=== PATIENT | male | born 1950 | race Caucasian/White ===

== ENCOUNTER 2025-02-06 08:57 | Inpatient (IN) ==
--- NOTE | 2025-01-17 11:09 | Anesthesiology Consultation ---
Date of Service January 17, 2025 Assessment & Plan (1) Encounter for pre-operative examination: - Infectious disease screening: Per assessment on 01/17/25- No known recent infectious disease contacts or current infectious disease symptoms. - Acceptable risk for surgery pending surgeon-ordered PCP preop evaluation (CAROLYN, appt 01/30). Chart Review Chart Review: Patient seen in Pre Admission Testing Teaching & Discussion Pre-Anesthesia Teaching/Discussion Notes: Instructed NPO after midnight before surgery,except medications with 15 cc of water. Medication instructions provided according to the PAT guidelines. History Surgery Operation Date: 02/06/25 10:05 Proposed Procedures p L3-L5 Decompression and Fusion - Pritesh Staley DO Height/Weight Height: 6 ft Weight: 115.3 kg Allergies Allergy/AdvReac Type Severity Reaction Status Date / Time No Known Drug Allergies Allergy Unknown Verified 01/17/25 11:14 Medications Home Medications Medication Instructions Recorded Confirmed Last Taken atorvastatin 20 mg tablet 20 mg PO QAM 01/17/25 01/17/25 Unknown cholecalciferol (vitamin D3) 50 50 mcg PO QAM 01/17/25 01/17/25 Unknown mcg (2,000 unit) capsule (Vitamin D3) lisinopril 30 mg tablet 30 mg PO QAM 01/17/25 01/17/25 Unknown loratadine 10 mg tablet 10 mg PO QAM 01/17/25 01/17/25 Unknown meloxicam 7.5 mg tablet 7.5 mg PO BID 01/17/25 01/17/25 Unknown omeprazole 20 mg tablet,delayed 20 mg PO QAM 01/17/25 01/17/25 Unknown release tizanidine 2 mg tablet 2 mg PO BID PRN Muscle Spasm 01/17/25 01/17/25 Unknown Past Medical History Medical History Hearing loss L cochlear implant History of migraine headaches HTN (hypertension) Hyperlipidemia Lower back pain no radicular sx Obesity Exercise / Class Metabolic Activity III < 4 Walking/Shop/Light housework Past Family History Family History Other No family history of adverse response to anesthesia Past Surgical History Surgical History History of cataract surgery B/L History of cochlear implant L 2009 History of eye surgery B/L retinal detachment History of left knee replacement Past Anesthesia History No Hx of Anesthesia Complications and No Family Hx of Anesthesia Complications History of PONV No Hx of PONV and No Hx of Motion Sickness Social History Smoking Status: Never smoker Do You Dip or Chew Tobacco: Yes (NPO guidelines provided) Hx Alcohol Use: Yes alcohol intake frequency: a few times a week Hx Substance Use: No Review of Systems Patient denies chest pain, shortness of breath, dyspnea on exertion, fever, chills, cough, wheezing. Physical Exam Vital Signs BP 135/85 P 57 TEMP 97.8 SP02 95%RA RESP 16 Physical Full cervical extension range of motion. Full TMJ range of motion. TMD 3 finger breaths Mallampati Score III Dentition: poor dentition, few remaining teeth, "all rotted" Lungs: clear throughout to auscultation Cardiac: regular rate and rhythm, no murmurs noted Spine: normal Carotid arteries: negative bruit Extremities: no LE edema Lab Results Anesthesia Preop Results Results Anesthesia Widget: WBC 6.88 K/ul (4.8-10.8) 01/17/25 Hgb 14.8 g/dl (14.0-18.0) 01/17/25 Hct 43.7 % (42.0-52.0) 01/17/25 Plt 172 K/uL (130-400) 01/17/25 Na 139 mmol/L (136-145) 01/17/25 K 4.0 mmol/L (3.5-5.1) 01/17/25 Cl 108 mmol/L (98-107) H 01/17/25 CO2 22 mmol/L (21-32) 01/17/25 BUN 20 mg/dl (6-23) 01/17/25 Creat 1.04 mg/dl (0.6-1.4) 01/17/25 Glucose Level 98 mg/dl (70-99(Fasting)) 01/17/25 PT 11.2 Seconds (9.0-12.0) 01/17/25 PTT 27 Seconds (21-31) 01/17/25 INR 1.1 (0.9-1.1) 01/17/25 Urine Color Yellow 01/17/25 Urine Appearance Clear (Clear) 01/17/25 Urine pH 6.5 (4.5-7.5) 01/17/25 Urine Specific [place] 1.022 (1.000-1.030) 01/17/25 Urine Protein Negative (Negative) 01/17/25 Urine Glucose (UA) Negative (Negative) 01/17/25 Urine Ketones Trace (Negative) H 01/17/25 Urine Blood Negative (Negative) 01/17/25 Urine Nitrite Negative (Negative) 01/17/25 Urine Bilirubin Negative (Negative) 01/17/25 Urine Urobilinogen Negative (Negative) 01/17/25 Urine Leukocyte Esterase Negative (Negative) 01/17/25 Blood Type A Positive 01/17/25 Antibody Screen NEGATIVE 01/17/25 Testing Electrocardiogram Date: 01/17/25 SB at 57bpm. LAFB. Chest X-Ray Date: 01/17/25 FINDINGS: There is a moderate hiatal hernia. Heart size and pulmonary vasculature are normal. Lungs are hyperexpanded. No consolidation or pleural effusion seen. There is prior kyphoplasty at the lower thoracic spine and there is mild chronic height loss at a few thoracic vertebral bodies otherwise. IMPRESSION: No acute findings.
--- NOTE | 2025-01-17 11:46 | PAT Medication Instructions ---
Medication Instructions Date of Service January 17, 2025 Home Medications atorvastatin 20 mg tablet 20 mg PO QAM cholecalciferol (vitamin D3) 50 mcg (2,000 unit) capsule (Vitamin D3) 50 mcg PO QAM lisinopril 30 mg tablet 30 mg PO QAM loratadine 10 mg tablet 10 mg PO QAM meloxicam 7.5 mg tablet 7.5 mg PO BID omeprazole 20 mg tablet,delayed release 20 mg PO QAM tizanidine 2 mg tablet 2 mg PO BID PRN Muscle Spasm ASK your surgeon for instructions meloxicam 7.5 mg tablet 7.5 mg PO BID DO NOT take the morning of surgery cholecalciferol (vitamin D3) 50 mcg (2,000 unit) capsule (Vitamin D3) 50 mcg PO QAM lisinopril 30 mg tablet 30 mg PO QAM loratadine 10 mg tablet 10 mg PO QAM Take morning of surgery With a small sip of water, OTHERWISE NOTHING TO EAT OR DRINK AFTER MIDNIGHT: atorvastatin 20 mg tablet 20 mg PO QAM omeprazole 20 mg tablet,delayed release 20 mg PO QAM tizanidine 2 mg tablet 2 mg PO BID PRN Muscle Spasm (if needed) Other Notes If you have any questions please call us at [phone] or [phone] or [phone] or [phone]
[2025-02-06] MEDS ORDERED: PROMETHAZINE HCL 6.25 MG in SODIUM CHLORIDE 0.9% 50 ML IV PRN (09:08)
[2025-02-06] MEDS ORDERED: ATROPINE SULFATE 0.1 MG/ML 10ML SYR IV PRN (09:08)
[2025-02-06] MEDS ORDERED: ONDANSETRON INJ 2 MG/ML 2 ML VIAL ONE (09:14)
[2025-02-06] MEDS ORDERED: LIDOCAINE 2% 20 MG/ML 5 ML SYR IV ONE (09:14)
[2025-02-06] MEDS ORDERED: DEXAMETHASONE SOD INJ 4 MG/ML VIAL ONE (09:14)
[2025-02-06] MEDS ORDERED: ROCURONIUM BROMIDE 10 MG/ML 5 ML VIAL IV ONE ×3 (09:14→11:30)
[2025-02-06] MEDS ORDERED: SUGAMMADEX SODIUM 200 MG/2 ML VIAL IV ONE ×2 (09:31→10:59)
[2025-02-06] MEDS: LR 15ML/HR IV SCH (09:41)
--- NOTE | 2025-02-06 09:41 | History & Physical Bridge Note ---
Date of Service February 06, 2025 History & Physical Bridge Note I have examined the patient, reviewed the History & Physical and in the interval since the performance of the History & Physical I have noted the following changes of clinical significance: no changes noted
--- NOTE | 2025-02-06 09:42 | History & Physical Report ---
Date of Service February 06, 2025 Assessment & Plan (1) Multilevel lumbosacral spondylosis with radiculopathy: Plan: L3-L5 decompression and fusion History of Present Illness Chief Complaint: Back and leg pain Primary Care Provider: NO PCP This is a 75-year-old male presents for chronic persistent back and leg pain after failing course of nonoperative care is here for surgical intervention. Allergies Allergy/AdvReac Type Severity Reaction Status Date / Time No Known Drug Allergies Allergy Unknown Verified 02/06/25 09:04 Home Medications Medication Instructions Recorded Confirmed Type atorvastatin 20 mg tablet 20 mg PO QAM 01/17/25 02/06/25 History cholecalciferol (vitamin D3) 50 50 mcg PO QAM 01/17/25 02/06/25 History mcg (2,000 unit) capsule (Vitamin D3) lisinopril 30 mg tablet 30 mg PO QAM 01/17/25 02/06/25 History loratadine 10 mg tablet 10 mg PO QAM PRN allergies 01/17/25 02/06/25 History meloxicam 7.5 mg tablet 7.5 mg PO BID 01/17/25 02/06/25 History omeprazole 20 mg tablet,delayed 20 mg PO QAM 01/17/25 02/06/25 History release tizanidine 2 mg tablet 2 mg PO BID PRN Muscle Spasm 01/17/25 02/06/25 History acetaminophen 500 mg tablet 1,000 mg PO Q6H PRN Pain 02/06/25 02/06/25 History Past Med/Surg History Problem List (Updated 02/06/25 @ 09:42 by Pritesh Staley DO) Multilevel lumbosacral spondylosis with radiculopathy Encounter for pre-operative examination Medical History Hearing loss L cochlear implant History of migraine headaches HTN (hypertension) Hyperlipidemia Lower back pain no radicular sx Obesity Surgical History History of cataract surgery B/L History of cochlear implant L 2009 History of eye surgery B/L retinal detachment History of left knee replacement Family History Other No family history of adverse response to anesthesia Social History Smoking Status: Never smoker Tobacco Type: Smokeless Tobacco (Dip or Chew) Second Hand Exposure: No; Do You Dip or Chew Tobacco: Yes (NPO guidelines provided); Tobacco Cessation Education Requested by Patient: No Hx Alcohol Use: Yes Hx Substance Use: No Preferred Language: Maori Communication Ability: Effective Fruit Dryer Required: No Beliefs That Will Affect Care: None Current Living Situation: Family Other Information That Helps Us Care for You: No Feels Safe at Home: Yes Safety Concerns: Feels Safe At This Time Assistive Devices: Glasses Assistive Devices Comment: L cochlear implant Physical Exam Physical Exam: Patient is alert and oriented heart regular rhythm Lungs clear Results & Data Results & Data Vital Signs (Past 12 Hours) Vital Signs Temp Pulse Resp BP Pulse Ox O2 Del Method 02/06/25 09:10 Room Air 02/06/25 09:09 36.6 C 61 18 141/82 H 95 Room Air
[2025-02-06] MEDS: LR 60ML/HR IV SCH (09:43)
[2025-02-06] MEDS: ACETAMINOPHEN 500 MG TAB PO SCH (09:45)
[2025-02-06] MEDS: GABAPENTIN 300 MG CAP PO SCH (09:45)
[2025-02-06] MEDS: CeleBREX 200 MG CAP PO SCH (09:45)
[2025-02-06] MEDS: BUPIVACAINE/EPINEPHRINE 0.25% 1:200,000 30 ML VIAL ONE (11:01)
[2025-02-06] MEDS ORDERED: PROPOFOL IV EMULSION 10 MG/ML 20 ML VIAL IV ONE ×2 (11:04→12:24)
[2025-02-06] MEDS: SURGICEL ABSORB HEMOSTAT 2IN X 14IN TOP ONE (11:29)
[2025-02-06] MEDS ORDERED: HYDROmorphone INJ 2 MG/ML SYR/VIAL ONE (11:38)
[2025-02-06] MEDS: ceFAZolin 330 MG/ML 1 GM VIAL ONE (12:33)
[2025-02-06] MEDS: FLOSEAL HEMOSTATIC MATRIX 10ML TOP ONE (12:44)
--- NOTE | 2025-02-06 12:48 | Operative Report ---
Post Operative Report Pre & Post Diagnosis Operation Date: 02/06/25 10:05 Pre-Op Diagnosis: #1 lumbar spondylosis with radiculopathy #2 lumbar spondylolisthesis #3 lumbar spinal stenosis Post-Op Diagnosis: Same I identified the patient and participated in the time-out.: Yes Procedure Operation Date: 02/06/25 10:05 Actual Procedures #1 lumbar decompression with bilateral medial facetectomies and foraminotomies L2-L3, L3-L4 and L4-L5 #2 posterior spinal fusion L3-L5. #3 placed posterior instrumentation L3-L5 using Lobato. #4 interbody fusion L3-L4 L4-L5. #5 placement Spira 12 x 26 mm at L3-L4 and 10 x 26 mm at L4-L5. 6 placement locally harvested morselized autograft in the posterior gutters. #7 placement of Koros bone graft combined with Proteus in the posterior lateral gutters and os design and interbody space. #8 application of versa wrap of the exposed dura. Surgeon Pritesh Staley, DO Solar Installation Helper Jill Rojas Estimated Blood Loss 650 Findings See Below The patient is 6 foot tall weighing 112 kg with a BMI in excess of 33. This combined with an EBL of greater than 650 cc created significant technical difficulty with positioning exposure and the procedure itself. This added at least 40% increased operative time. And recommending modifier 22. Specimens None Indications This is a 75-year-old male who presents publish diagnosis after failing course of nonoperative care is here for surgical invention. Description of Procedure Patient was met with identified informed consent obtained. Patient was then taken to the operative suite underwent ablation placed in a prone position on the Lanre table on top of the Collin frame. All bony prominences well-padded eyes inspected to ensure no external pressure placed upon them. This point the lumbar spine was prepped and draped in normal sterile fashion. Sharp dissection with the assistance of Bovie guidance from down to and exposing the lamina transverse processes of L3-L4-L5 bilaterally. From caudal cephalad fashion complete laminectomy of L4 and L3 including bilateral medial facetectomies and foraminotomies addressing severe epidural adhesions foraminal stenosis. Then I performed a partial laminectomy of L2 with bilateral medial facetectomies to address all subarticular stenosis. Pedicle screws were then placed in L3-L4-L5 bilaterally with assistance of fluoroscopy and the properly sized shruthi contoured and placed. By way of transfer and approach on the right discectomy of L4-L5 was performed endplates corrected to subcortical bleeding bone and a 10 x 26 mm Spira cage tapped into position. Then proceeded to the left transforaminal region at L4 for L5. Again discectomy performed. Endplates cut to subcortical bleeding bone and a second 10 x 26 mm Spira cage tapped into position. Then proceeded to L3-L4 and by way of transfer and approach on the left discectomy was performed endplates guided to subcortical bleeding bone and a 12 x 26 mm Spira cage tapped in position. Lastly approached the right transforaminal region at L3-L4. Again discectomy performed. Endplates corrected to subcortical bleeding bone and a second 12 x 26 mm Spira cage tapped into position. Please note all cages were packed with os design bone graft. The rods were then compressed locked in final position bilaterally. The transverse processes of L3 L4-5 burred to subcortical bleeding bone. Proteus combined with Koros bone graft and local autograft placed in the posterolateral gutters. Versa wrap placed over the exposed dura. 15 round TARYN drain inserted. The incision was then closed with 1 Vicryl the fascia 2-0 Vicryl subcutaneously and 4-0 Monocryl for final skin closure. Steri-Strips sterile dressing placed. Patient waken taken to PACU in stable condition. Please note Jill Rojas was present of the entire procedure and on the patient positioning complex portion of the surgery and final skin closure. I attest to the content of the Intraoperative Record and any orders documented therein. Any exceptions are noted below.
[2025-02-06] MEDS: HYDROmorphone INJ 2 MG/ML SYR/VIAL IV PRN (13:34)
--- NOTE | 2025-02-06 13:39 | Fluoroscopy Report ---
FL lumbar spine 2-3V CLINICAL HISTORY: L3-L5 DECOMP AND FUSION COMPARISON STUDY: None FLUOROSCOPY TIME: 15 seconds FLUOROSCOPY IMAGES: 2 EXPOSURE DOSE: 7.2 mGy FINDINGS: Fluoroscopy was provided for lower lumbar fusion. IMPRESSION: Intraoperative fluoroscopy ACT 112: Negative or not required by law. Electronically signed by: Vaibhav Courtney M.D. 02/06/2025 1:38 PM
--- NOTE | 2025-02-06 14:56 | Anesthesiology Progress Note ---
Date of Service February 06, 2025 Anesthesia Post Procedure Vital Signs Vital Signs: Temp Pulse Pulse Resp BP Pulse Ox O2 Del Method 02/06/25 14:40 70 12 90/67 L 94 Nasal Cannula 02/06/25 14:25 71 14 91/70 L 94 Nasal Cannula 02/06/25 14:10 36.4 C L 70 12 103/67 95 Nasal Cannula 02/06/25 14:00 71 12 110/71 95 Nasal Cannula 02/06/25 13:50 68 12 106/75 95 Oxymask 02/06/25 13:40 69 12 110/71 97 Oxymask 02/06/25 13:30 70 12 105/68 96 Oxymask 02/06/25 13:20 71 12 110/74 95 Oxymask 02/06/25 13:10 73 12 107/76 97 Oxymask 02/06/25 13:00 36.2 C L 78 16 122/71 97 Oxymask 02/06/25 09:10 Room Air 02/06/25 09:09 36.6 C 61 18 141/82 H 95 Room Air O2 Flow Rate 02/06/25 14:40 2 02/06/25 14:25 2 02/06/25 14:10 2 02/06/25 14:00 2 02/06/25 13:50 4 02/06/25 13:40 4 02/06/25 13:30 4 02/06/25 13:20 4 02/06/25 13:10 6 02/06/25 13:00 6 02/06/25 09:10 02/06/25 09:09 Pain Intensity Back: Pain Intensity: 5 Transfer of Care Handoff Completed per policy Notes Mental Status: alert / awake / arousable and participated in evaluation Nausea / Vomiting: adequately controlled Pain: adequately controlled Airway Patency, RR, SpO2: stable & adequate BP & HR: stable & adequate Hydration State: stable & adequate Anesthetic Complications: no major complications apparent and Pt Satisfied with anesthetic care
[2025-02-06] MEDS ORDERED: DO NOT ADMINISTER PNEUMOCOCCAL VACCINE PRN (16:23)
[2025-02-06] MEDS ORDERED: HYDROmorphone INJ 1 MG/ML SYRINGE IV PRN (16:23)
[2025-02-06] MEDS ORDERED: METOCLOPRAMIDE HCL INJ 5 MG/ML 2 ML VIAL IV PRN (16:23)
[2025-02-06] MEDS ORDERED: ONDANSETRON 4 MG OD TAB PO PRN (16:23)
[2025-02-06] MEDS ORDERED: LORATADINE 10 MG TAB PO PRN (16:23)
[2025-02-06] MEDS ORDERED: ONDANSETRON INJ 2 MG/ML 2 ML VIAL IV PRN (16:23)
[2025-02-06] MEDS ORDERED: LORazepam 0.5 MG TAB PO PRN (16:23)
[2025-02-06] MEDS ORDERED: MAGNESIUM HYDROXIDE SUSP 30 ML UDC PO PRN (16:23)
[2025-02-06] MEDS ORDERED: ALUMINUM/MAGNESIUM SUSP 30 ML UDC PO PRN (16:23)
[2025-02-06] MEDS ORDERED: NALOXONE HCL 0.4 MG/1 ML VIAL/CARP IV PRN (16:23)
[2025-02-06] MEDS ORDERED: DO NOT ADMINISTER FLU VACCINE PRN (16:23)
[2025-02-06] MEDS ORDERED: ACETAMINOPHEN 1,000 MG/100 ML VIAL IV PRN (16:23)
[2025-02-06] MEDS ORDERED: SOD PHOSPHATE/SOD BIPHOSPHATE ENEMA 132 ML BTL PR PRN (16:23)
[2025-02-06] MEDS ORDERED: FAMOTIDINE 20 MG TAB PO PRN (16:23)
[2025-02-06] MEDS ORDERED: diphenhydrAMINE Capsule 25 MG CAP PO PRN (16:23)
[2025-02-06] MEDS ORDERED: HYDROmorphone INJ 0.5 MG/0.5 ML SYR IV PRN (16:23)
[2025-02-06] MEDS ORDERED: LORazepam Inj 0.5 MG in SYRINGE 0.25 ML IV PRN (16:23)
[2025-02-06] MEDS ORDERED: PROMETHAZINE 12.5 MG/50.5 ML BAG IV PRN (16:23)
[2025-02-06] MEDS: SODIUM CHLORIDE 0.9% 1,000 ML IV SCH (18:47)
--- NOTE | 2025-02-06 19:10 | Consultation ---
Date of Consultation February 06, 2025 Assessment & Plan (1) Multilevel lumbosacral spondylosis with radiculopathy: S/p lumbar surgery w/ Dr. Staley pain management, DVT ppx, PT/OT as per orthopedics Monitor H&H for acute blood loss anemia. Pre-op Hgb 14.8 HTN - on lisinopril, hold for now, BP 117/71 - monitor BP HLD - cont. atorvastatin GERD - at home on omeprazole, cont. pantoprazole for now Prediabetes - Hgb A1c 5.7 in 05/2024, per outpt records recent glucose levels normal - cont. to monitor History of Present Illness Requesting Physician: Dr. Staley Reason for Consultation: post op med management Attending Physician: Pritesh Staley, History of Present Illness Pt is a 75 yo M with hx of prediabetes, HTN, left anterior fasc. block, GERD w/o esophagitis, lumbosacral radiculopathy who is s/p lumbar spine surgery w/ Dr. Staley. Currently sitting up in bed in [facility]. Pt's present at the bedside. Pt denies any chest pain, shortness of breath, fevers, chills, abd. pain, n/v. Says he just ate. He is moving extremities. Says his back is sore from surgery but overall feels comfortable. Pt is hard of hearing. Allergies Allergy/AdvReac Type Severity Reaction Status Date / Time No Known Drug Allergies Allergy Unknown Verified 02/06/25 09:04 Home Medications Medication Instructions Recorded Confirmed Type atorvastatin 20 mg tablet 20 mg PO QAM 01/17/25 02/06/25 History cholecalciferol (vitamin D3) 50 50 mcg PO QAM 01/17/25 02/06/25 History mcg (2,000 unit) capsule (Vitamin D3) lisinopril 30 mg tablet 30 mg PO QAM 01/17/25 02/06/25 History loratadine 10 mg tablet 10 mg PO QAM PRN allergies 01/17/25 02/06/25 History meloxicam 7.5 mg tablet 7.5 mg PO BID 01/17/25 02/06/25 History omeprazole 20 mg tablet,delayed 20 mg PO QAM 01/17/25 02/06/25 History release tizanidine 2 mg tablet 2 mg PO BID PRN Muscle Spasm 01/17/25 02/06/25 History acetaminophen 500 mg tablet 1,000 mg PO Q6H PRN Pain 02/06/25 02/06/25 History Patient History Medical History History of migraine headaches Hearing loss L cochlear implant Obesity Lower back pain no radicular sx Hyperlipidemia HTN (hypertension) Surgical History History of eye surgery B/L retinal detachment History of cataract surgery B/L History of left knee replacement History of cochlear implant L 2009 Family History Other No family history of adverse response to anesthesia Social History Smoking Status: Never smoker Tobacco Type: Smokeless Tobacco (Dip or Chew) Second Hand Exposure: No; Do You Dip or Chew Tobacco: Yes (NPO guidelines provided); Tobacco Cessation Education Requested by Patient: No Hx Alcohol Use: Yes Hx Substance Use: No Preferred Language: Maltese Communication Ability: Effective Consulting Application Engineer Required: No Beliefs That Will Affect Care: None Current Living Situation: Family Other Information That Helps Us Care for You: No Feels Safe at Home: Yes Safety Concerns: Feels Safe At This Time Assistive Devices: Glasses Assistive Devices Comment: L cochlear implant Review of Systems Review of Systems: All systems reviewed & are unremarkable except as noted in HPI & below Physical Exam Constitutional: WD/WN, vitals as above Eyes: PERRL, conjunctivae normal, anicteric sclerae ENMT: external ear and nose normal, oropharynx normal Neck: supple Respiratory: normal respiratory effort, lungs clear to auscultation Cardiovascular: Rate/Rhythm: regular rate and regular rhythm Chest (Breasts): Chest: normal inspection of chest Gastrointestinal (Abdomen): normal bowel sounds, soft, nontender, no hepatosplenomegaly Musculoskeletal: moves extremities Skin: no rashes, warm and dry Neurologic: awake, alert, answers appropriately, moves extremities Results & Data Vital Signs (Past 12 Hours) Vital Signs Temp Pulse Pulse Resp BP Pulse Ox O2 Del Method 02/06/25 18:40 36.5 C 65 16 101/66 93 Room Air 02/06/25 17:51 36.3 C L 77 16 117/71 94 Room Air 02/06/25 16:28 36.2 C L 65 16 119/77 97 Nasal Cannula 02/06/25 16:06 36.3 C L 66 16 108/72 97 Nasal Cannula 02/06/25 15:30 36.4 C L 70 18 110/69 95 Nasal Cannula 02/06/25 15:10 73 12 103/66 94 Nasal Cannula 02/06/25 14:55 72 12 94/66 L 94 Nasal Cannula 02/06/25 14:40 70 12 90/67 L 94 Nasal Cannula 02/06/25 14:25 71 14 91/70 L 94 Nasal Cannula 02/06/25 14:10 36.4 C L 70 12 103/67 95 Nasal Cannula 02/06/25 14:00 71 12 110/71 95 Nasal Cannula 02/06/25 13:50 68 12 106/75 95 Oxymask 02/06/25 13:40 69 12 110/71 97 Oxymask 02/06/25 13:30 70 12 105/68 96 Oxymask 02/06/25 13:20 71 12 110/74 95 Oxymask 02/06/25 13:10 73 12 107/76 97 Oxymask 02/06/25 13:00 36.2 C L 78 16 122/71 97 Oxymask 02/06/25 09:10 Room Air 02/06/25 09:09 36.6 C 61 18 141/82 H 95 Room Air O2 Flow Rate 02/06/25 18:40 02/06/25 17:51 02/06/25 16:28 2 02/06/25 16:06 2 02/06/25 15:30 2 02/06/25 15:10 2 02/06/25 14:55 2 02/06/25 14:40 2 02/06/25 14:25 2 02/06/25 14:10 2 02/06/25 14:00 2 02/06/25 13:50 4 02/06/25 13:40 4 02/06/25 13:30 4 02/06/25 13:20 4 02/06/25 13:10 6 02/06/25 13:00 6 02/06/25 09:10 02/06/25 09:09
[2025-02-06] MEDS: DOCUSATE SODIUM/SENNA 50/8.6MG TAB PO SCH (21:03)
[2025-02-07] MEDS: POLYETHYLENE (MIRALAX) 17 GM PACK PO SCH ×2 (05:08→19:07)
[2025-02-07 06:36] LABS: Hematocrit (blood only) 33.8 % (42.0-52.0); Hemoglobin 11.9 g/dl (14.0-18.0); Immature Granulocytes # (auto) 0.05 K/uL (0.01-0.20); Immature Granulocytes % (auto) 0.3 %; Mean Corpuscular Hemoglobin 30.7 pg (25.0-34.0); Mean Corpuscular Volume 87.3 fL (80.0-100.0); Platelet Count 166 K/uL (130-400); RDW Standard Deviation 39.8 fL (36.4-46.3); Red Blood Count 3.87 M/uL (4.70-6.10); White Blood Count 14.85 K/ul (4.8-10.8)
[2025-02-07 06:52] LABS: Anion Gap 8.0 (3-11); Blood Urea Nitrogen 21.0 mg/dl (6-23); Calcium 8.3 mg/dl (8.6-10.3); Carbon Dioxide 22.0 mmol/L (21-32); Chloride 106.0 mmol/L (98-107); Creatinine Clr Calc Pharmacy 73.9 ml/min; Glucose 122.0 mg/dl (70-99(Fasting)); Magnesium 1.7 mg/dl (1.7-2.4); Potassium 4.3 mmol/L (3.5-5.1); Sodium 136.0 mmol/L (136-145)
[2025-02-07] MEDS: ATORVASTATIN 20 MG TAB PO SCH (07:16)
[2025-02-07] MEDS: CHOLECALCIFEROL 25 MCG (1000 UNITS) TAB PO SCH (07:17)
[2025-02-07] MEDS: dexAMETHasone 6 MG in SYRINGE 0 ML IV SCH (07:17)
--- NOTE | 2025-02-07 09:17 | Orthopedic Progress Note ---
Date of Service February 07, 2025 Assessment & Plan (1) Multilevel lumbosacral spondylosis with radiculopathy: Plan: Today we will initiate physical therapy monitor his TARYN output. Discontinue his Chan. Will plan on discharge in next few days. Admission and Anticipated Discharge Date Admission Date: February 06, 2025 Subjective Back pain controlled with pain improved Physical Exam Physical Exam: Patient is currently bed appears comfortable. Distracted testing. Results & Data Vital Signs (Past 12 Hours) Vital Signs Temp Pulse Resp BP Pulse Ox O2 Del Method 02/07/25 07:07 36.6 C 68 16 120/71 94 Room Air 02/07/25 03:35 36.6 C 64 16 104/65 94 Room Air 02/06/25 23:34 36.7 C 61 16 98/59 L 93 Room Air Queries Orthopedic Spine Obesity: Yes
[2025-02-07] MEDS: ACETAMINOPHEN 500 MG TAB PO PRN (11:26)
--- NOTE | 2025-02-07 15:28 | Hospitalist Progress Note ---
Date of Service February 07, 2025 Assessment & Plan (1) Multilevel lumbosacral spondylosis with radiculopathy: Plan: POD#1 L3-L5 decompression and fusion Dr. 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 atorvastatin GERD Continue PPI DVT PROPHYLAXIS MEREDITH/SCDs as per spine Ortho Thank you for this consultation. We will follow the patient with you during their hospital stay. You can reach a member of the [facility] Hospitalist Team 03/11 via the [facility] in [place] Text. Admission and Anticipated Discharge Date Admission Date: February 06, 2025 Supervising Physician Co-Signing Physician Notes Patient seen and examined Agree with findings and plans as detailed by Ana DIMAS Subjective Follow-up for medical management, s/p L3-L5 decompression and fusion by Dr. Staley. Patient seen and examined. Sitting up in the chair. Reports pain is well- controlled. No numbness or tingling or weakness to lower extremities. Denies chest pain and shortness of breath. No abdominal pain or nausea. Physical Exam Constitutional: WD/WN, vitals as above no acute distress ENMT: Cochlear implant Respiratory: normal respiratory effort, lungs clear to auscultation Cardiovascular: Rate/Rhythm: regular rate and regular rhythm Vessels: normal peripheral pulses Extremities: no edema Musculoskeletal: s/p back surgery, drain in place draining serosanguineous drainage Skin: no rashes, warm and dry Neurologic: no focal motor deficits Psychiatric: A+Ox3, euthymic affect Results & Data Results & Data Vital Signs (Past 12 Hours) Vital Signs Temp Pulse Resp BP Pulse Ox O2 Del Method 02/07/25 11:13 36.3 C L 57 L 16 141/81 H 94 Room Air 02/07/25 07:07 36.6 C 68 16 120/71 94 Room Air 02/07/25 03:35 36.6 C 64 16 104/65 94 Room Air Laboratory Results Short CBC 02/07/25 Range/Units 05:48 WBC 14.85 H (4.8-10.8) K/ul Hgb 11.9 L (14.0-18.0) g/dl Hct 33.8 L (42.0-52.0) % Plt Count 166 (130-400) K/uL BMP 02/07/25 05:48 Sodium 136 Potassium 4.3 Chloride 106 Carbon Dioxide 22 BUN 21 Creatinine 1.15 Glucose 122 H Calcium 8.3 L
[2025-02-08 07:10] LABS: Hematocrit (blood only) 33.2 % (42.0-52.0); Hemoglobin 11.6 g/dl (14.0-18.0); Mean Corpuscular Hemoglobin 30.4 pg (25.0-34.0); Mean Corpuscular Volume 86.9 fL (80.0-100.0); Platelet Count 157 K/uL (130-400); RDW Standard Deviation 40.1 fL (36.4-46.3); Red Blood Count 3.82 M/uL (4.70-6.10); White Blood Count 13.34 K/ul (4.8-10.8)
[2025-02-08 07:30] LABS: Anion Gap 7.0 (3-11); Blood Urea Nitrogen 24.0 mg/dl (6-23); Calcium 8.4 mg/dl (8.6-10.3); Carbon Dioxide 23.0 mmol/L (21-32); Chloride 106.0 mmol/L (98-107); Creatinine Clr Calc Pharmacy 78.0 ml/min; Glucose 112.0 mg/dl (70-99(Fasting)); Potassium 4.2 mmol/L (3.5-5.1); Sodium 136.0 mmol/L (136-145)
--- NOTE | 2025-02-08 08:16 | Orthopedic Progress Note ---
Date of Service February 08, 2025 Assessment & Plan (1) Multilevel lumbosacral spondylosis with radiculopathy: Plan: Francis Is postoperative day 2 status post L3-5 decompression and fusion. Will continue physical therapy and ambulation today. Work on pain control. Maintain TARYN drain. DVT prophylaxis is in the form of teds and SCDs. Continue with aggressive bowel regimen. Anticipate discharge home tomorrow. Admission and Anticipated Discharge Date Admission Date: February 06, 2025 Subjective Francis is postoperative day 2 status post L3-5 decompression and fusion. He has more back pain today. Leg pains improved. TARYN drain output last shift was 80 cc. H&H this morning are 11.6 and 33.2 respectively. Yesterday in physical therapy he was Ambulating roughly 125 feet. He has had a bowel movement. Review of Systems Review of Systems: All systems reviewed & are unremarkable except as noted in HPI & below Physical Exam Physical Exam: Alert and oriented x 3 eating breakfast Seen in conjunction with his spouse Lumbar dressing is clean dry and intact with functioning TARYN drain strength is 5 5 bilateral lower extremities Calf soft nontender bilateral lower extremities Results & Data Vital Signs (Past 12 Hours) Vital Signs Temp Pulse BP Pulse Ox O2 Del Method 02/07/25 20:55 36.6 C 62 131/82 94 Room Air Queries Orthopedic Spine Obesity: Yes
--- NOTE | 2025-02-08 12:54 | Hospitalist Progress Note ---
<Statement entered by Juon Newman, DO - 02/08/25 14:58> Reviewed and d/w AMANDA Date of Service February 08, 2025 Assessment & Plan (1) Multilevel lumbosacral spondylosis with radiculopathy: Plan: POD#2 L3-L5 decompression and fusion Dr. 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 atorvastatin GERD Continue PPI DVT PROPHYLAXIS MEREDITH/SCDs as per spine Ortho Thank you for this consultation. We will follow the patient with you during their hospital stay. You can reach a member of the [facility] Hospitalist Team 03/11 via the [facility] Hospitalist role in [place] [employer]. Admission and Anticipated Discharge Date Admission Date: February 06, 2025 Subjective Follow-up for medical management, s/p L3-L5 decompression and fusion by Dr. Staley. Patient seen and examined. Resting in bed. Reports pain is well-controlled. Denies numbness, tingling, weakness to lower extremities. Urinating without difficulty. +BM. Physical Exam Constitutional: WD/WN, vitals as above no acute distress Eyes: Cochlear implant Respiratory: normal respiratory effort, lungs clear to auscultation Cardiovascular: Rate/Rhythm: regular rate and regular rhythm Vessels: normal peripheral pulses Extremities: no edema Musculoskeletal: s/p back surgery, pedal pushes and pulls strong bilaterally, drain in place draining a small amount of serosanguineous drainage Skin: no rashes, warm and dry Neurologic: no focal motor deficits Psychiatric: A+Ox3, euthymic affect Results & Data Results & Data Vital Signs (Past 12 Hours) Vital Signs Temp Pulse Resp BP Pulse Ox O2 Del Method 02/08/25 08:00 36.4 C L 61 16 135/89 94 Room Air Laboratory Results Short CBC 02/08/25 Range/Units 06:23 WBC 13.34 H (4.8-10.8) K/ul Hgb 11.6 L (14.0-18.0) g/dl Hct 33.2 L (42.0-52.0) % Plt Count 157 (130-400) K/uL BMP 02/08/25 06:23 Sodium 136 Potassium 4.2 Chloride 106 Carbon Dioxide 23 BUN 24 H Creatinine 1.09 Glucose 112 H Calcium 8.4 L
[2025-02-09 06:34] LABS: Hematocrit (blood only) 33.4 % (42.0-52.0); Hemoglobin 11.7 g/dl (14.0-18.0); Mean Corpuscular Hemoglobin 30.4 pg (25.0-34.0); Mean Corpuscular Volume 86.8 fL (80.0-100.0); Platelet Count 164 K/uL (130-400); RDW Standard Deviation 39.7 fL (36.4-46.3); Red Blood Count 3.85 M/uL (4.70-6.10); White Blood Count 13.52 K/ul (4.8-10.8)
[2025-02-09 06:58] LABS: Anion Gap 9.0 (3-11); Blood Urea Nitrogen 22.0 mg/dl (6-23); Calcium 8.5 mg/dl (8.6-10.3); Carbon Dioxide 22.0 mmol/L (21-32); Chloride 105.0 mmol/L (98-107); Creatinine Clr Calc Pharmacy 80.2 ml/min; Glucose 109.0 mg/dl (70-99(Fasting)); Potassium 3.9 mmol/L (3.5-5.1); Sodium 136.0 mmol/L (136-145)
[2025-02-09 07:21] VITALS: BP 133/82; PULSE 61; RESP 15; TEMP 97.9; O2SAT 93
--- NOTE | 2025-02-09 07:29 | Hospitalist Progress Note ---
<Statement entered by Juno Newman, - 02/09/25 12:47> seen and examined No complaints. Date of Service February 09, 2025 Assessment & Plan (1) Multilevel lumbosacral spondylosis with radiculopathy: (2) Acute blood loss anemia: (3) HTN (hypertension): (4) Hyperlipidemia: (5) GERD (gastroesophageal reflux disease): Plan 75 year old male with PMH significant for dyslipidemia, prediabetes, hypertension, left anterior fascicular block, GERD, hearing loss with cochlear implant in place, and multilevel lumbosacral spondylosis with radiculopathy who underwent L3-L5 decompression and fusion on 02/06/[address] Staley. We have been consulted for post operative medical management. Multilevel lumbosacral spondylosis with radiculopathy POD#3 L3-L5 decompression and fusion on 02/06/[address] Staley PT recommending dc to home Pain is well controlled DC today Acute blood loss anemia Hgb 14.8 preop-> 11.7 on day of dc Patient asymptomatic Leukocytosis WBC 13.52 on day of dc Likely secondary to steroids No s/s of infection HTN Continue lisinopril HLD Continue atorvastatin GERD Continue PPI Disposition: DC to home today per Ortho Thank you for this consultation. We will continue to follow this patient with you. A member of the [facility] Hospitalist team is available 03/11 via the role in [employer] - please don't hesitate to reach out with questions. Patient seen in collaboration with Dr. Newman. Please see addendum. I spent a total of 50 minutes coordinating, documenting and providing care for this patient excluding time spent in the performance of separately billed services or time spent by another provider/QHP. Admission and Anticipated Discharge Date Admission Date: February 06, 2025 Subjective Patient seen resting in chair Reports discomfort in low back with initial movement that improves once walking Denies pain in hips with walking which is improvement from prior to surgery Had a bowel movement Discharge to home today Review of Systems Review of Systems: All systems reviewed & are unremarkable except as noted in HPI & below Physical Exam Physical Exam: General/Psych: WD/WN, sitting up in chair, NAD, conversing easily Head: normocephalic, atraumatic Eyes: normal inspection, PERRL, conjunctivae pink ENT: external ear and nose normal, oropharynx normal Neck: normal visual inspection, trachea midline Respiratory: normal respiratory effort, lungs clear to auscultation, no wheeze/rales/rhonchi, no accessory muscle use Cardiovascular: regular rate and rhythm, no murmur/rub/gallop Extremities: no cyanosis or clubbing, normal peripheral pulses, no BLE edema, sensation intact BLE Abdomen/GI: normal bowel sounds, soft, nontender Neurologic/MSK: A+Ox3, motor strength 5/5, moves all extremities Skin: no rashes, normal color, warm and dry, island dressing c/d/i, TARYN drain with sanguinous output Results & Data Results & Data Vital Signs (Past 12 Hours) Vital Signs Temp Pulse Resp BP Pulse Ox O2 Del Method 02/09/25 07:20 36.6 C 61 15 133/82 93 Room Air 02/08/25 20:59 36.5 C 72 18 124/78 95 Room Air Laboratory Results Short CBC 02/09/25 Range/Units 06:06 WBC 13.52 H (4.8-10.8) K/ul Hgb 11.7 L (14.0-18.0) g/dl Hct 33.4 L (42.0-52.0) % Plt Count 164 (130-400) K/uL BMP 02/08/25 02/09/25 06:23 06:06 Sodium 136 136 Potassium 4.2 3.9 Chloride 106 105 Carbon Dioxide 23 22 BUN 24 H 22 Creatinine 1.09 1.06 Glucose 112 H 109 H Calcium 8.4 L 8.5 L I have independently reviewed and interpreted patient's labs including CBC and BMP Medications Administered Current Inpatient Medications Acetaminophen (Acetaminophen 500 Mg Tab) 1,000 mg PO Q8H PRN PRN Reason: MILD Pain (1,2,3) & Pre PT Stop: 03/08/25 16:22 Last Admin: 02/07/25 11:26 Dose: 1,000 mg Al Hydrox/Mg Hydrox/Simethicone (Aluminum/Magnesium Susp 30 Ml Udc) 30 ml PO Q6H PRN PRN Reason: Dyspepsia Stop: 03/08/25 16:22 Atorvastatin Calcium (Atorvastatin 20 Mg Tab) 20 mg PO QAM KASSIE Stop: 03/09/25 08:59 Last Admin: 02/09/25 07:22 Dose: 20 mg Bisacodyl (Bisacodyl 10 Mg Supp) 10 mg NH DAILY PRN PRN Reason: Constipation Stop: 03/08/25 16:22 Diphenhydramine HCl (Diphenhydramine Capsule 25 Mg Cap) 25 mg PO Q6H PRN PRN Reason: Allergic Rhinitis/Insomnia Stop: 03/08/25 16:22 Famotidine (Famotidine 20 Mg Tab) 20 mg PO Q12H PRN PRN Reason: Dyspepsia Stop: 03/08/25 16:22 Hydromorphone HCl (Hydromorphone Inj 0.5 Mg/0.5 Ml Syr) 0.5 mg IV Q3H PRN PRN Reason: MODERATE Pain(4,5,6)/Pre PT Stop: 02/20/25 16:22 Hydromorphone HCl (Hydromorphone Inj 1 Mg/Ml Syringe) 1 mg IV Q3H PRN PRN Reason: SEVERE Pain (7,8,9,10) Stop: 02/20/25 16:22 Hydroxyzine HCl (Hydroxyzine Hcl 25 Mg Tab) 25 mg PO Q8H PRN PRN Reason: Anxiety Stop: 03/08/25 16:22 Cefazolin Sodium (Ancef 2000mg) 2,000 mg in 15 mls @ 3.75 mls/min IV Q8H KASSIE Stop: 02/09/25 11:03 Last Admin: 02/09/25 03:29 Dose: 3.75 mls/min Promethazine HCl (Phenergan) 12.5 mg in 50.5 mls @ 202 mls/hr IV Q6H PRN PRN Reason: Nausea And Vomiting Stop: 03/08/25 16:22 Lorazepam 0.5 mg/ Syringe 0.5 mls @ 2 mls/min IV Q8H PRN PRN Reason: Sedation/Anxiety Stop: 03/08/25 16:22 Dexamethasone 6 mg/ Syringe 1.5 mls @ 1 mls/min IV DAILY KASSIE Stop: 02/09/25 09:02 Last Admin: 02/09/25 07:21 Dose: 1 mls/min Influenza Virus Vaccine Quadrival (Do Not Administer Flu Vaccine) 1 each N/A PRN PRN PRN Reason: Notification Stop: 03/08/25 16:22 Lisinopril (Lisinopril 10 Mg Tab) 30 mg PO QAM KASSIE Stop: 03/09/25 08:59 Last Admin: 02/09/25 07:21 Dose: 30 mg Loratadine (Loratadine 10 Mg Tab) 10 mg PO QAM PRN PRN Reason: allergies Stop: 03/08/25 16:22 Lorazepam (Lorazepam 0.5 Mg Tab) 0.5 mg PO Q8H PRN PRN Reason: Sedation/Anxiety Stop: 03/08/25 16:22 Magnesium Hydroxide (Magnesium Hydroxide Susp 30 Ml Udc) 30 ml PO Q24H PRN PRN Reason: Constipation Stop: 03/08/25 16:22 Metoclopramide HCl (Metoclopramide Hcl Inj 5 Mg/Ml 2 Ml Vial) 10 mg IV Q6H PRN PRN Reason: Nausea &/or Vomiting Stop: 03/08/25 16:22 Naloxone HCl (Naloxone Hcl 0.4 Mg/1 Ml Vial/Carp) 0.1 mg IV Q5M PRN PRN Reason: Oversedation/Resp depression Stop: 03/08/25 16:22 Ondansetron HCl (Ondansetron Inj 2 Mg/Ml 2 Ml Vial) 4 mg IV Q6H PRN PRN Reason: Nausea &/or Vomiting Stop: 03/08/25 16:22 Ondansetron HCl (Ondansetron 4 Mg Od Tab) 4 mg PO Q6H PRN PRN Reason: Nausea Stop: 03/08/25 16:22 Oxycodone HCl (Oxycodone Hcl Ir 5 Mg Tab (Immediate Release)) 5 - 10 mg PO Q4H PRN PRN Reason: MOD/SEV Pain & Pre PT Stop: 02/20/25 16:22 Pantoprazole Sodium (Pantoprazole 40 Mg Tab) 40 mg PO QAM KASSIE Stop: 03/09/25 08:59 Last Admin: 02/09/25 07:22 Dose: 40 mg Pneumococcal Polyvalent Vaccine (Do Not Administer Pneumococcal Vaccine) 1 each N/A PRN PRN PRN Reason: Notification Stop: 03/08/25 16:22 Senna/Docusate Sodium (Docusate Sodium/Senna 50/8.6mg Tab) 2 tab PO HS [facility] Stop: 03/08/25 20:59 Last Admin: 02/08/25 20:15 Dose: Not Given Sodium Biphosphate/Sodium Phosphate (Sod Phosphate/Sod Biphosphate Enema 132 Ml Btl) 132 ml NH ONE PRN PRN Reason: Constipation Stop: 03/08/25 16:22 Tizanidine HCl (Tizanidine Hcl 4 Mg Tablet) 2 mg PO BID PRN PRN Reason: Muscle Spasm Stop: 03/08/25 16:22 Tramadol HCl (Tramadol Hcl 50 Mg Tablet) 50 - 100 mg PO Q4H PRN PRN Reason: MOD/SEV Pain & Pre PT Stop: 03/08/25 16:22 Last Admin: 02/08/25 20:57 Dose: 100 mg Vitamin D (Cholecalciferol 25 Mcg (1000 Units) Tab) 50 mcg PO [facility] Stop: 03/09/25 08:59 Last Admin: 02/09/25 07:22 Dose: 50 mcg
--- NOTE | 2025-02-09 10:15 | Discharge Summary ---
Date of Service February 09, 2025 Admission HPI Per Admitting Provider This is a 75-year-old male presents for chronic persistent back and leg pain after failing course of nonoperative care is here for surgical intervention. Principal Diagnosis Lumbar spondylosis with radiculopathy Discharge Data Allergies Allergy/AdvReac Type Severity Reaction Status Date / Time No Known Drug Allergies Allergy Unknown Verified 02/06/25 09:04 Consultations 02/06/25 16:23 Consult Hospitalist Routine Procedures Performed Operation Date: 02/06/25 10:05 Actual Procedures p L3-L5 Decompression and Fusion(Not Applicable) - Pritesh Staley DO Ordered Studies 02/06/25 10:05 FL lumbar spine 2-3V Routine Hospital Course (1) Multilevel lumbosacral spondylosis with radiculopathy: Patient went lumbar decompression fusion tolerated as well as taken orthopedic for postoperative. Postop he progressed appropriate. TARYN drain decreasing. Pain controlled. Good strength testing. Subsequently discharged home. Discharge orders and instructions found in chart for further review. Total Time Total Time Spent Total Time Spent (In Minutes): 20 minutes Discharge Plan Discharge Items Patient Disposition: Home - Self-Care Reason For Visit: Two Level Lumbosacral Spondylosis with Radicul Discharge Diagnosis: Lumbar spondylosis with radiculopathy Activity: As commented below Non-emergency contact: Primary Care Provider Call non-emergency contact if: you have any medication questions Follow-up/Referrals: PCP,NO [Physician] - Diet: Regular Addtl Attending Provider Instructions: ACTIVITY RECOMMENDATIONS: SELF CARE INSTRUCTIONS AFTER THORACIC/LUMBAR FUSIONS 1. You may walk to your tolerance. It is good exercise for your legs and back. Expect some back and intermittent leg aches and pains. 2. You may perform "counter-top" level activities (make a sandwich, claudia with a project, etc.). 3. No bending or lifting of more than 10 pounds or back twisting of any nature (roll like a log when turning in bed). 4. You may ride in a car for 20-30 minutes at a time. No driving until after your first visit with your doctor. 5. Frequent changes of position and restricting sitting to 30 minutes at a time will help limit the amount of back spasms and stiffness you may experience. 6. You may discontinue the use of ambulatory aids (cane, crutches, etc.) once your strength and confidence allow. 7. 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 Do not take a tub bath, sit in a hot tub or go into a swimming pool until after your first recheck in the office. 8. You may resume previous diet. SPECIAL CARE INSTRUCTIONS: VERY IMPORTANT TO READ AND REVIEW A. Your surgical incision has been closed with a cosmetic suture under the skin that will dissolve in about 6 weeks. In 14 days, you can use a pair of clean scissors and cut the suture that is left outside of the skin at the ends of your incision. 1. The small skin tapes can be removed 7 days after surgery if they have not fallen off by that point. 2. You may keep the wound open to air as much as possible to promote healing after post-op day number 5 unless told otherwise by your doctor. 3. If you think the wound looks like it is becoming infected (redness or worsening drainage) and/or you are experiencing fever, chill or worsening back pain and muscle spasms, contact the office so that we may evaluate you as soon as possible. B. Complications are uncommon, but please contact us if you have any signs or symptoms of: 1. wound infection (fever higher than 102.5 degrees F, redness, separation of wound, drainage, or increasing pain from the incision) 2. blood clots in legs (pain, swelling, redness and warmth in legs) 3. urinary tract infection (fever higher than 102.5 degrees F, burning upon urination or increased frequency of urination) 4. nerve problems (inability to walk on your toes or heels, numbness, loss of bowel or bladder control) 5. any other symptoms that concern you C. Please call the office at if you have any concerns or questions about your operation or recovery. D. No smoking! Smoking drastically decreases the chance of a solid fusion. E. Do not take any anti-inflammatory medications (Indocin, Advil, Motrin, Aspirin, Naprosyn, etc.) as these may inhibit the chance of a solid fusion. Tylenol is okay to take for pain. MANAGING PAIN AFTER SPINAL SURGERY 1. Narcotic medication is intended for short-term use and will be provided for surgical pain. Surgical pain usually lasts for a period of 4-6 weeks. Narcotic medication includes Percocet, Vicodin, Darvocet, Tylenol #3 or Lortab. 2. Longer-term pain is more appropriately treated with non-narcotic medication such as Tylenol ES. 3. Muscle spasm is not appropriately treated with narcotics. Muscle relaxers such as Soma, Flexeril or Skelaxin can be used along with Tylenol ES. 4. Remember that we all live with some "aches and pains". This is not unusual or uncommon after an injury or as we get older. a. Back pain is expected and may include muscle spasms for 4 to 6 weeks after surgery. The pain should gradually improve. If the pain worsens for no apparent reason, please contact the office. b. Intermittent leg pain may also be experienced and should not be concerned about unless it worsens for no apparent reason. If so, please contact the office. 5. We will provide appropriate medication within the normal guidelines of their prescribed use. We will also be very cautious and aware of potential abuse and extended duration of patients' medication needs. a. Pain medications are for your comfort and to assist with sleep and rest so that the tissue can heal. They are not provided in order to return to normal activity and should not be used through the day. To do so or worsening pain at night can result from ongoing tissue damage and development of tolerance to the prescribed medicine. 6. Please allow 2-3 days to process refills. Prescriptions will not be mailed but must be picked up at the office. FOLLOW UP VISIT: Keep your scheduled follow-up appointment. Any questions, please call the office at . Pending Studies at Discharge: No Stand-Alone Forms: [facility], Smoking Cessation Medications and ID Order Prescriptions: New tramadol 50 mg tablet 50 mg PO Q6H PRN (Reason: pain, moderate) Qty: 30 0RF oxycodone 5 mg tablet 5 mg PO Q6H PRN (Reason: pain) Qty: 30 0RF Continued atorvastatin 20 mg Tablet 20 mg PO QAM tizanidine 2 mg Tablet 2 mg PO BID PRN (Reason: Muscle Spasm) meloxicam 7.5 mg Tablet 7.5 mg PO BID lisinopril 30 mg Tablet 30 mg PO QAM loratadine 10 mg Tablet 10 mg PO QAM PRN (Reason: allergies) omeprazole 20 mg Tablet,Delayed Release (Dr/Ec) 20 mg PO QAM cholecalciferol (vitamin D3) [Vitamin D3] 50 mcg (2,000 unit) Capsule 50 mcg PO QAM acetaminophen [Tylenol Ex Str Arthritis Pain] 500 mg Tablet 1,000 mg PO Q6H PRN (Reason: Pain) Discharge Orders: Discharge Order (Routine); Ordered 02/09/25 Ordered By: Pritesh Staley Admission Data Admit Date/Time: 02/06/25 12:53 Attending Provider: Pritesh Staley Admit Provider: Pritesh Staley Primary Care Provider: True Connelly Other Providers: Caro Javed; Juno Newman
== END 2025-02-09 11:35 | disposition home or self-care (01) | DRG 427 ==
LOC: ASU 08:57 → 3E 12:53